=== PATIENT | female | born 1995 | race Caucasian/White ===

== ENCOUNTER 2016-11-13 13:28 | Emergency (ER) | payer MEDICAID ==
[~2016-11-13] VITALS: Ht 152.4 cm; Wt 86.2 kg
[2016-11-13 13:36] VITALS: BP 125/77
[2016-11-13 14:04] LABS: BASOPHILS # (AUTO) 0.2 K/uL (0.00-0.22); BASOPHILS % (AUTO) 1.8 % (0.0-2.0); EOSINOPHILS # (AUTO) 0.2 K/uL (0-0.4); HEMATOCRIT 40.4 % (36-48); HEMOGLOBIN 13.4 g/dL (12.0-16.0); LYMPHOCYTES # (AUTO) 3.3 K/uL (2.5-16.5); LYMPHOCYTES % (AUTO) 32.3 % (20.5-51.1); MEAN CORPUSCULAR HEMOGLOBIN 29 pg (27-31); MEAN CORPUSCULAR HGB CONC 33 g/dL (33-37); MEAN CORPUSCULAR VOLUME 88 fL (80-94); MONOCYTES # (AUTO) 0.5 K/uL (0.8-1.0); MONOCYTES % (AUTO) 4.6 % (1.7-9.3); NEUTROPHILS # (AUTO) 6.1 K/uL (1.8-7.7); NEUTROPHILS % (AUTO) 59.3 % (42.2-75.2); PLATELET COUNT (AUTO) 328 K/uL (140-450); RED BLOOD CELL COUNT(AUTO) 4.59 MIL/uL (4.20-5.40); RED CELL DISTRIBUTION WIDTH 12.2 % (11.6-13.7); WHITE BLOOD COUNT (AUTO) 10.3 K/uL (4.8-10.8)
[2016-11-13 14:08] LABS: APPEARANCE,URINE CLEAR (CLEAR); BILIRUBIN,URINE NEGATIVE (NEGATIVE); BLOOD, URINE TRACE-I (NEGATIVE); COLOR,URINE YELLOW (YELLOW); LEUKOCYTE ESTERASE ,URINE NEGATIVE (NEGATIVE); NITRITE, URINE NEGATIVE (NEGATIVE); PROTEIN,URINE NEGATIVE (NEGATIVE); UGLUCOSE NEGATIVE (NEGATIVE); UROBILINOGEN,URINE 0.2 EU/dL (0.2 - 1)
[2016-11-13 14:19] LABS: BACTERIA,URINE RARE /HPF (None Seen); MUCUS,URINE 1+ /LPF (None Seen); WBC,URINE 0-3 /HPF (0-5)
[2016-11-13 14:19] LABS: ANION GAP 11.6 (8-16); CARBON DIOXIDE 28.4 mmol/L (21-32); CREATININE 0.7 mg/dL (0.6-1.3)
--- NOTE | 2016-11-13 14:24 | NUR ---
Patient back to lobby from Ultrasound via wheelchair per tech.
--- NOTE | 2016-11-13 19:04 | NUR ---
PATIENT LEFT WITHOUT BEING SEEN BY DR. SANTIAGO. NO FURTHER CARE PROVIDED FOR PATIENT.
== END 2016-11-13 19:04 | disposition left against medical advice (07) ==
LOC: MED 13:28
DX: O26.891 Other specified pregnancy related conditions, first trimester (principal); R10.2 Pelvic and perineal pain; Z53.21 Procedure and treatment not carried out due to patient leaving prior to being seen by health care provider
CPT/HCPCS: 36415; 76801; 76817; 80048; 81001; 84702; 85025; 86900; 86901; 99281; Q0092

== ENCOUNTER 2016-11-22 03:37 | Inpatient (IN) | payer MEDICAID ==
[~2016-11-22] VITALS: Ht 152.4 cm; Wt 86.2 kg
[~2016-11-22 03:37] MED LIST: CEPHALEXIN250 MG/51 GT; LORTAB 10/500 51 TAB GT; MOTRIN600 MG PO; PRENATAL VITAMI1 T10 PO; TAPAZOLE5 MG PO
[2016-11-22 03:43] VITALS: BP 112/60
--- NOTE | 2016-11-22 04:30 | NUR ---
TO ER BED 3
--- NOTE | 2016-11-22 04:33 | NUR ---
21 Y/O F 8 WKS W/C/O ABD CRAMPING AND SPOTING SINCE YESTERDAY. PT STATES SHE IS NOT BLEEDING HEAVILY ONLY SPOTING. DENIES ANY FEVER, OR CHILLS. ER MADE AWARE.
--- NOTE | 2016-11-22 05:43 | NUR ---
MOVED TO ER BED 7
[2016-11-22] MEDS ORDERED: NACL 0.9% 1,000 ML IV ONE (06:15)
[2016-11-22] MEDS ORDERED: MORPHINE SULFATE 2 MG/ML SYR IVP ONE (06:15)
--- NOTE | 2016-11-22 07:02 | NUR ---
REPORT GIVEN TO THEODORE KUMAR. PT STABLE, VSS, IV FLUIDS RUNING, NO S/S OF DISTRESS NOTED AT THE MOMENT. PT ON MONITOR.
--- NOTE | 2016-11-22 07:54 | NUR ---
Dr. Alessandra Echeverria at bedside to evaluate patient.
--- NOTE | 2016-11-22 08:00 | NUR ---
PER DR LOPEZ PT WILL BE NPO
--- NOTE | 2016-11-22 08:15 | NUR ---
Patient will be admitted to care of DR LOPEZ. Admited to [facility]. Will go to room 120B. Belongings list completed. Report to THEODORE HOU.
[2016-11-22 09:00] VITALS: BP 101/48
--- NOTE | 2016-11-22 09:00 | NUR ---
RECEIVED PT ON UNIT, PT IS A/OX4, IV IS ON THE RT AC, PATENT, INTACT, INFUSING WELL, SKIN IS INTACT, NO S/S OF RESPIRATORY DISTRESS OR DISCOMFORT NOTED, PATIENT COMPLAINED OF A 3/10 PAIN AT THIS TIME, DISCUSSED PLAN OF CARE WITH PT, PT VERBALIZED UNDERSTANDING, ORIENTED PT TO ROOM, SAFETY/FALL PRECAUTIONS ARE IN PLACE, PT IS AT BEDSIDE, CALL LIGHT IS WITHIN REACH, WILL CONTINUE TO MONITOR.
--- NOTE | 2016-11-22 11:00 | NUR ---
PT SLEEPING AT THIS TIME, IS AT BEDSIDE.
--- NOTE | 2016-11-22 12:44 | NUR ---
PT OFF UNIT, TAKEN TO OR FOR SURGICAL PROCEDURE. CONSENT SIGNED BY PT.
[2016-11-22] MEDS ORDERED: LIDOCAINE 2% 100 MG/5 ML SYR IVP ONE (12:46)
[2016-11-22] MEDS ORDERED: ONDANSETRON 4 MG/2 ML VIAL ONE ×2 (12:46→13:45)
[2016-11-22] MEDS ORDERED: PHENYLEPHRINE 10 MG/ML VIAL ONE (12:46)
[2016-11-22] MEDS ORDERED: GLYCOPYRROLATE 0.2 MG/ML VIAL ONE (12:46)
[2016-11-22] MEDS ORDERED: ePHEDrine 50 MG/ML VIAL ONE (12:46)
[2016-11-22] MEDS ORDERED: DEXAMETHASONE 4 MG/ML VIAL ONE (12:46)
[2016-11-22] MEDS ORDERED: ROCURONIUM 50 MG/5 ML VIAL IV ONE (12:46)
[2016-11-22] MEDS ORDERED: KETOROLAC 30 MG/ML VIAL ONE (12:46)
[2016-11-22] MEDS ORDERED: PROPOFOL 200 MG/20 ML VIAL IV ONE (12:46)
[2016-11-22] MEDS ORDERED: DESFLURANE 240 ML BTL INH ONE (12:46)
[2016-11-22] MEDS ORDERED: SUCCINYLCHOLINE CHLORIDE 200 MG/10 ML VIAL IVP ONE (12:46)
[2016-11-22] MEDS ORDERED: fentaNYL 0.05 MG/ML VIAL ONE (12:57)
[2016-11-22] MEDS ORDERED: MIDAZOLAM 2 MG/2 ML VIAL ONE (12:57)
[2016-11-22] MEDS ORDERED: BUPIVACAINE-MPF/EPI 0.5% 30 ML VIAL INJ ONE (13:01)
[2016-11-22] MEDS ORDERED: ONDANSETRON 4 MG/2 ML VIAL IVP PRN ×2 (13:10→13:20)
[2016-11-22] MEDS ORDERED: HYDROmorphone PFS 2 MG/ML SYR ONE (13:45)
[2016-11-22] MEDS: HYDROmorphone 1 MG/ML AMP IVP PRN ×4 (13:45→14:15)
--- NOTE | 2016-11-22 14:07 | NUR ---
CM NOTE INITIAL REVIEW FAXED TO [facility] / FAX# [phone], ATTN: MARCELLA #[phone]
--- NOTE | 2016-11-22 14:25 | NUR ---
PT RETURNED TO UNIT FROM OR. PT HAS A DRY AND INTACT, HORIZONTAL ABDOMINAL DRESSING. PT STABLE AT THIS TIME.
[2016-11-22 16:00] VITALS: BP 118/57
[2016-11-22] MEDS: MORPHINE SULFATE 4 MG/ML SYR IM/IVP PRN ×2 (17:14→20:10)
--- NOTE | 2016-11-22 17:14 | NUR ---
PT COMPLAINED OF A 9/10 PAIN, WILL MEDICATE WITH PRN PAIN MEDICATION AT THIS TIME.
--- NOTE | 2016-11-22 19:15 | NUR ---
RECEIVED REPORT FROM THEODORE ROWE. INITIAL ASSESSMENT COMPLETED. PT AAOX4. PT STABLE. PT HAS ABDOMINAL DRESSING S/P EXPLORATORY LAPAROTOMY WITH REMOVAL OF THE ECTOPIC . PT HAS O2 2L NC. PT HAS SCDS ON. ORIENTED PT TO ROOM AND SURROUNDINGS AND USE OF CALL LIGHT. EXPLAINED PLAN OF CARE TO PT AND SHE VERBALIZES UNDERSTANDING. WILL CONTINUE TO MONITOR PT. Addendum: 11/22/16 at 2118 by Madelyn Lance RN PT HAS IV TO RIGHT ARM G 20; ASYMPTOMATIC, PATENT AND INTACT INFUSING FLUIDS WELL.
--- NOTE | 2016-11-22 19:20 | NUR ---
PT ENDORSED TO THEODORE CHAUDHARY. FOR CONTINUITY OF CARE, PT'S SISTER IS AT BEDSIDE, PT STABLE AT THIS TIME.
--- NOTE | 2016-11-22 20:08 | NUR ---
PT COMPLAINING OF PAIN 03/14. VS STABLE, WILL MEDICATE ORDERED.
--- NOTE | 2016-11-22 20:50 | NUR ---
ASSISTED PT TO AMBULATE TO THE RESTROOM; PT VOIDED. PT TOLERATED IT WELL. PT BACK IN BED COMFORTABLY NOW. CALL LIGHT WITHIN REACH.
[2016-11-23] VITALS: BP 131/76
--- NOTE | 2016-11-23 00:40 | NUR ---
ENDORSED PLAN OF CARE TO THEODORE MEEK. PT IN STABLE CONDITION.
--- NOTE | 2016-11-23 01:00 | NUR ---
Patient's Plan of Care was discussed and reviewed with FRUIT CANNER: LOIS Springer
--- NOTE | 2016-11-23 01:01 | NUR ---
RECD. SLEEPING IN BED, RESPIRATION EVEN AND UNLABORED. IV OF NS AT 100 INFUSING RIGHT AC G 20. INCISION IN THE ABDOMEN COVERED WITH DRESSING DRY AND INTACT. NO APPEARANCE OF PAIN NOTED 0/10.
--- NOTE | 2016-11-23 04:30 | NUR ---
SITTING ON BED, HAD AMBULATED FROM BR. STATED PASSING GAS BU NO BM YET, ENCOURAGED TO AMBULATE MORE.
[2016-11-23 04:55] VITALS: BP 106/73
[2016-11-23] MEDS: MORPHINE SULFATE 4 MG/ML SYR IM/IVP PRN ×3 (05:01→16:42)
--- NOTE | 2016-11-23 07:02 | NUR ---
CONDITION REMAIN STABLE. TOLERATING CLEAR LIQUID DIET. WILL ENDORSE TO AM NURSE FOR CONTINUITY OF CARE.
--- NOTE | 2016-11-23 07:15 | NUR ---
RECEIVED REPORT FROM NIGHT NURSE. PT IS AAOX4, SHOWS NO S/S OF DISTRESS AND STATES SHE HAS PAIN AT INCISION SITE. PT'S DRESSING IS CLEAN, DRY, AND INTACT. PT STATES PAIN LEVEL IS 5 OUT OF 10. 10 BEING THE WORSE PAIN. WILL MEDICATE PT. PT'S IV IS ON R AC PATENT AND INTACT. SKIN IS INTACT. PT BED IS LOWERED, FLAT, AND CALL LIGHT IS WITHIN REACH. WILL CONTINUE TO MONITOR.
--- NOTE | 2016-11-23 08:05 | NUR ---
PATIENT HAS BEEN SCREENED AND CATEGORIZED LOW NUTRITION RISK. PATIENT WILL BE SEEN WITHIN 7 DAYS OF ADMISSION. 11/29/[address]
[2016-11-23] MEDS: ACETAMINOPHEN/CODEINE 300/30MG 1 TAB PO PRN (08:29)
--- NOTE | 2016-11-23 08:30 | NUR ---
PT STATED SHE WAS IN PAIN. ADMINISTERED PRN PAIN MEDICATION. WILL REASSESS AT 0920.
--- NOTE | 2016-11-23 11:00 | NUR ---
CM NOTE CONCURRENT REVIEW FAXED TO [facility] / FAX# [phone], ATTN: MARCELLA #[phone] EXT [phone]
--- NOTE | 2016-11-23 11:00 | NUR ---
AMBULATED PATIENT IN UNIT. PATIENT TOLERATED WELL. PT SHOWED NO S/S OF DISTRESS. PT IS NOW IN BED RESTING. WILL CONTINUE TO MONITOR.
[2016-11-23 16:00] VITALS: BP 97/56
--- NOTE | 2016-11-23 17:50 | NUR ---
PT IS AMB WITH FAMILY MEMBER. PT IS TOLERATING WELL. WILL CONTINUE TO MONITOR
--- NOTE | 2016-11-23 19:10 | NUR ---
PT REPORT GIVEN AT BEDSIDE. PT ENDORSED IN STABLE CONDITION.
--- NOTE | 2016-11-23 19:15 | NUR ---
PATIENT IS CURRENTLY RESTING IN BED AWAKE ALERT ORIENTED HAS NO COMPLAINS OF PAIN AT THIS TIME.PATIENT IS SITTING IN CHAIR SAYS SHE IS TIRED OF LAYING DOWN IN BED.PATIENT CONTINUES TO WEAR THE ABDOMINAL BINDER FOR SUPPORT AND SHE HAS DEON TO LOWER ABDOMEN DRY AND INTACT.PATIENT ENCOURAGED TO AMBULATE.PATIENT VERBALIZES UNDERSTANDING CURRENTLY WITH FAMILY AT BEDSIDE.CALL LIGHT WITHIN REACH.
--- NOTE | 2016-11-23 19:30 | NUR ---
Patient's Plan of Care was discussed and reviewed with SUPERVISOR METAL HANGING: SEAN Rodriguez
--- NOTE | 2016-11-23 19:50 | NUR ---
PATIENT SEEN AMBULATING AROUND THE NURSES STATION AT THIS TIME ACCOMPANIED BY FAMILY MEMBERS.PATIENT IS DOING WELL AT THIS TIME.WILL CONTINUE TO MONITOR.
[2016-11-23 20:00] VITALS: BP 117/65
--- NOTE | 2016-11-23 20:12 | NUR ---
MD FELECIA FERRER WILL WAIT FOR HIS RETURN CALL.
--- NOTE | 2016-11-23 20:12 | NUR ---
I ASKED THE PATIENT IS SHE IS IN PAIN AND PATIENT STATES,"IM AFRAID OF ASKING FOR PAIN MEDICATION THE NURSES MAY THINK IM ADDICTED TO THE PAIN MEDICATION THEY ASK ME MANY QUESTIONS I FEEL LIKE NURSES DON'T BELIEVE ME." PATIENT STATES HER PAIN IS A 2/10 AND SHE STATES,"MY PAIN IS TOLERABLE AT THIS TIME REFUSED ANY PAIN MEDICATION AT THSI TIME."PATIENT ALSO INFORMED ME THAT THE MORPHINE SHE RECEIVED DURING THE DAY WASN'T EFFECTIVE PATIENT STATES,"IT JUST PUTS ME TO SLEEP." AND THE TYLENOL AFTER TAKING IT IM STILL IN PAIN." I EXPLAINED TO THE PATIENT THAT SHE WILL RECEIVE HER PAIN MEDICATIONS WHEN SHE NEEDS THEM AND WHEN ITS TIME FOR HER PAIN MEDICATIONS. I EXPLAINED TO THE PATIENT HOW TO RATE HER PAIN USING THE 0-10 HAPPY FACE PAIN SCALE AND HOW TO DESCRIBE HER PAIN WELL, AND SHE VERBALIZES UNDERSTANDING.WILL CONTINUE TO MONITOR.
--- NOTE | 2016-11-23 20:13 | NUR ---
MD LOPEZ,T CALLED BACK AND WAS INFORMED THAT PATIENT STATES,"MY PAIN IS NOT RELIEVED WITH TYLENOL AND MORPHINE ONLY PUTS ME TO SLEEP BUT DOESN'T RELIEVE MY PAIN."
--- NOTE | 2016-11-23 20:13 | NUR ---
MD BO GAVE NEW ORDERS WILL CARRY THEM OUT.
[2016-11-23] MEDS: HYDROcodone/APAP 10/325 MG 1 TAB TAB PO PRN (20:31)
--- NOTE | 2016-11-23 20:31 | NUR ---
I EXPLAINED TO THE PATIENT THAT MD BO WAS CALLED AND HE ORDERED A NEW PAIN MEDICATION AND EDUCATION GIVEN PATIENT VERBALIZES UNDERSTANDING AND TOOK HER PAIN MEDICATION WILL CONTINUE TO MONITOR.CALL LIGHT WITHIN REACH.
--- NOTE | 2016-11-24 00:35 | NUR ---
PATIENT IS CURRENTLY AWAKE SITTING IN A CHAIR NEXT TO THE BED.I ASKED THE PATIENT IF SHE IS HAVING PAIN PATIENT STATES,"NO THANKS PAIN IS 0/10 AT THIS TIME." PATIENT STATES,"IM JUST TEXTING A FRIEND BUT IM FINE."CALL LIGHT WITHIN REACH WILL CONTINUE TO MONITOR.
[2016-11-24] MEDS: ACETAMINOPHEN/CODEINE 300/30MG 1 TAB PO PRN (02:00)
--- NOTE | 2016-11-24 03:17 | NUR ---
PATIENT AWAKE ON THE PHONE TALKING.CALL LIGHT WITHIN REACH WILL CONTINUE TO MONITOR.
[2016-11-24 04:00] VITALS: BP 109/53
[2016-11-24] MEDS: HYDROcodone/APAP 10/325 MG 1 TAB TAB PO PRN (04:59)
--- NOTE | 2016-11-24 05:00 | NUR ---
PATIENT IS STABLE RESTING IN BED IN NO DISTRESS WILL CONTINUE TO MONITOR COMPLAINS OF MODERATE INCISIONAL PAIN AND WAS MEDICATED INDICATED.
--- NOTE | 2016-11-24 07:10 | NUR ---
RECEIVED REPORT FROM NIGHT NURSE. PT IS AAOX4. PT HAS NO S/S OF DISTRESS. PT IS ON ROOM AIR. IV IS LOCATED AT RIGHT AC 20 GAUGE AND PATENT AND INTACT. PT HAS ABD INCISION CONCRETE WORKER. PT INCISION IS CLEAN DRY AND INTACT. PT HAS NO C/O PAIN AT THIS TIME. WILL CONTINUE TO MONITOR.
--- NOTE | 2016-11-24 07:25 | NUR ---
PATIENT STABLE REPORT ENDORSED AT BEDSIDE TO THEODORE ENCISO AND THEODORE JONES.
[2016-11-24 07:57] VITALS: BP 114/66
--- NOTE | 2016-11-24 09:12 | NUR ---
PT IS RESTING IN BED AND WATCHING TV.
--- NOTE | 2016-11-24 10:30 | NUR ---
PT SEEN BY DR. LOPEZ. PT CLEARED FOR DISCHARGE.
[2016-11-24] MEDS ORDERED: MOTRIN400 MG PO (10:41)
--- NOTE | 2016-11-24 11:00 | NUR ---
PT HAS BEEN DISCHARGED. PT FAMILY IS AT BEDSIDE. DISCHARGE INSTRUCTIONS GIVEN, PAPERWORK SIGNED, AND PRESCRIPTIONS GIVEN. ALL BELONGINGS AND PRESCRIPTIONS IN PATIENT POSSESSION. PT VERBALIZED UNDERSTANDING. IV DISCONTINUED WITH CANNULA INTACT. WRISTBANDS WERE REMOVED. OFFERED PATIENT WHEELCHAIR, PATIENT REFUSED. PATIENT AMB OUT OF UNIT WITH STEADY GAIT AND FAMILY PRESENT AT SIDE. PT IS IN STABLE CONDITION.
== END 2016-11-24 11:00 | disposition home or self-care (01) | DRG 545 ==
LOC: MED 03:37 → MTU 08:20
PROVIDERS: ADMIT Obstetrics & Gynecology; ATTEND Obstetrics & Gynecology
PROC: 10T20ZZ Resection of Products of Conception, Ectopic, Open Approach (ICD-10-PCS; principal; 2016-11-22 13:00)
DX: O00.10 Tubal pregnancy without intrauterine pregnancy (principal); E66.9 Obesity, unspecified; O99.211 Obesity complicating pregnancy, first trimester; O09.291 Supervision of pregnancy with other poor reproductive or obstetric history, first trimester; Z68.37 Body mass index [BMI] 37.0-37.9, adult

== ENCOUNTER 2016-12-13 05:52 | Emergency (ER) | payer MEDICAID ==
[~2016-12-13] VITALS: Ht 165.1 cm; Wt 87.1 kg
[~2016-12-13 05:52] MED LIST changes: -CEPHALEXIN250 MG/51 GT; +IBUP-1842 PO; -LORTAB 10/500 51 TAB GT; -MOTRIN600 MG PO; -PRENATAL VITAMI1 T10 PO; -TAPAZOLE5 MG PO
[2016-12-13 05:55] VITALS: BP 111/61
--- NOTE | 2016-12-13 06:02 | NUR ---
TO ER BED 5
--- NOTE | 2016-12-13 06:09 | NUR ---
21Y/F PATIENT PRESENTS TO ED WITH C/O HEADACHE X 1DAY . PT STATES HEADCAHE START YESTERDAY WITH N/V, NO DIARHEA; SKIN IS PINK/WARM/DRY; AAOX4 WITH EVEN AND STEADY GAIT; LUNGS CLEAR BL; HR EVEN AND REGULAR; PT DENIES ANY FEVER, CP, SOB, OR COUGH AT THIS TIME; C/O HEADACHE, PATIENT STATES PAIN OF 8/10 AT THIS TIME; VSS; PATIENT POSITIONED FOR COMFORT; HOB ELEVATED; BEDRAILS UP X2; BED DOWN. ER MD MADE AWARE OF PT STATUS.
--- NOTE | 2016-12-13 06:10 | NUR ---
Patient being evaluated by DR. SANTIAGO at bedside.
[2016-12-13] MEDS ORDERED: diphenhydrAMINE 50 MG/ML VIAL IM ONE (06:15)
[2016-12-13] MEDS ORDERED: PROCHLORPERAZINE 10 MG/2 ML VIAL IM ONE (06:15)
[2016-12-13 07:14] VITALS: BP 100/61
--- NOTE | 2016-12-13 07:15 | NUR ---
Patient discharged with v/s stable. Written and verbal after care instructions given and explained. Patient alert, oriented and verbalized understanding of instructions. Ambulatory with steady gait. All questions addressed prior to discharge. ID band removed. Patient advised to follow up with PMD. Rx of COMPAZINE 10 MG, BENADRYL 50 MG given. Patient educated on indication of medication including possible reaction and side effects. Opportunity to ask questions provided and answered.
== END 2016-12-13 07:15 | disposition home or self-care (01) ==
LOC: MED 05:52
DX: G43.909 Migraine, unspecified, not intractable, without status migrainosus (principal)
CPT/HCPCS: 81002; 81025; 96372; 99284; J0780; J1200